=== PATIENT | male | born 1985 | race Caucasian/White ===

== ENCOUNTER 2019-06-23 15:31 | Emergency (ER) | payer OTHER ==
[2019-06-23 15:59] VITALS: BP 137/75; PULSE 88; TEMP 98.1; BMI 25.0
--- NOTE | 2019-06-23 15:59 | PDOC ---
Rapid Medical Evaluation Time Seen by Provider: 06/23/19 15:57 Medical Evaluation: Allergies Allergy/AdvReac Type Severity Reaction Status Date / Time Penicillins Allergy Verified 01/28/16 00:55 06/23/19 15:57 CC: Atraumatic right shoulder pain PE: TTP over right anterior capsule. No deformity, dislocation, step-offs present. Orders: nothing Patient will proceed to ED for continued evaluation. Discharge Disposition - Diagnosis Right anterior shoulder pain - Referrals - Patient Instructions - Post Discharge Activity
--- NOTE | 2019-06-23 16:35 | PDOC ---
History of Present Illness - General Chief Complaint: Pain, Acute Stated Complaint: RT SHOULDER PAIN Time Seen by Provider: 06/23/19 15:57 - History of Present Illness Initial Comments: 06/23/19 16:32 34-year-old male presents for evaluation of atraumatic onset of right shoulder pain 2 days Past History - Past Medical History Allergies/Adverse Reactions: Allergies Allergy/AdvReac Type Severity Reaction Status Date / Time Penicillins Allergy Verified 06/23/19 15:59 Home Medications: Ambulatory Orders Omeprazole [Prilosec (RX)] 40 mg PO DAILY 08/10/15 Diphenhydramine HCl [Benadryl -] 25 mg PO Q6H #28 capsule 01/28/16 Loratadine [Claritin -] 10 mg PO DAILY #7 tablet 01/28/16 Ibuprofen [Motrin -] 600 mg PO TID #30 tablet 06/23/19 Anemia: No Asthma: No Cancer: No Cardiac Disorders: No CVA: No COPD: No CHF: No Dementia: No Diabetes: No GI Disorders: Yes (GERD) Disorders: No HTN: No Hypercholesterolemia: No Liver Disease: No Seizures: No Thyroid Disease: No - Surgical History Abdominal Surgery: No Appendectomy: No Cardiac Surgery: No Cholecystectomy: No Lung Surgery: No Neurologic Surgery: No Orthopedic Surgery: No - Suicide/Smoking/Psychosocial Hx Smoking History: Current some day smoker Have you smoked in the past 12 months: No Number of Cigarettes Smoked Daily: 0 Information on smoking cessation initiated: No Hx Alcohol Use: Yes Drug/Substance Use Hx: Yes Substance Use Type: None Hx Substance Use Treatment: No Review of Systems - Review of Systems Musculoskeletal: Yes: Joint Pain *Physical Exam - Vital Signs Last Vital Signs Temp Pulse Resp BP Pulse Ox 98.1 F 88 16 137/75 98 06/23/19 15:57 06/23/19 15:57 06/23/19 15:57 06/23/19 15:57 06/23/19 15:57 - Physical Exam Comments: 06/23/19 16:32 Skin color and temperature are normal range of motion is full. 5 out of 5 strength with bilateral supraspinatus isolation external and internal rotation mildly positive impingement maneuvers on the right negative Spurling maneuver neurovascularly intact no gross sensory motor deficits. Medical Decision Making - Medical Decision Making 06/23/19 16:34 Medical right shoulder pain most likely impingement syndrome will have patient follow up with orthospine discussed use of anti-inflammatories *DC/Admit/Observation/Transfer Diagnosis at time of Disposition: Right anterior shoulder pain - Discharge Dispostion Disposition: HOME Condition at time of disposition: Stable Decision to Admit order: No - Referrals Referrals: Henry Harden DO [Staff Physician] - - Patient Instructions Additional Instructions: Tylenol as directed as well as the anti-inflammatory you prescribed 40 return to the emergency room for worsening symptoms and follow-up with orthopedic surgery in 1-2 days for further evaluation and treatment options. - Post Discharge Activity
== END 2019-06-23 16:38 | disposition home or self-care (01) ==
LOC: JERFT 15:31
DX: M25.511 Pain in right shoulder (principal); K21.9 Gastro-esophageal reflux disease without esophagitis; F17.210 Nicotine dependence, cigarettes, uncomplicated
CPT/HCPCS: 99281-25